=== PATIENT | male | born 1990 | race Hispanic/Latino ===

== ENCOUNTER 2022-07-16 19:21 | Emergency (ER) | payer OTHER ==
[~2022-07-16] VITALS: Ht 177.8 cm; Wt 114.8 kg
== END 2022-07-16 21:14 | disposition home or self-care (01) ==
LOC: ED 19:21
DX: S51.011A Laceration without foreign body of right elbow, initial encounter (principal); W01.0XXA Fall on same level from slipping, tripping and stumbling without subsequent striking against object, initial encounter
CPT/HCPCS: 99282